=== PATIENT | female | born 1970 | race African-American/Black ===

== ENCOUNTER 2024-11-02 08:52 | Emergency (ER) | payer MEDICAID ==
[~2024-11-02] VITALS: Ht 170.2 cm; Wt 109.0 kg
[2024-11-02 08:55] VITALS: TEMP 36.9; O2SAT 100
[2024-11-02] MEDS ORDERED: DEXAMETHASONE 1 MG/ML ORAL SYR PO ONE (09:15)
[2024-11-02] MEDS: DEXAMETHASONE 10 MG/ML VIAL PO NR (09:30)
[2024-11-02] MEDS: KETOROLAC 30MG/ML VIAL IM ONE (09:30)
[2024-11-02] MEDS: CEFTRIAXONE SODIUM 500MG VIAL IV ONE (10:00)
[2024-11-02 10:01] LABS: HEMATOCRIT. 35.6 % (36.0-48.0); HEMOGLOBIN. 11.6 g/dL (12.0-16.0); MEAN PLATELET VOLUME 8.3 fl (7.4-10.4); PLATELET 336 x1000/uL (130-400); RED BLOOD CELL COUNT 4.36 mill/uL (4.2-5.4); RED CELL DISTRIBUTION WIDTH 15.6 % (11.6-14.6)
[2024-11-02] MEDS: DOXYCYCLINE HYCLATE 100MG CAPSULE PO ONE (10:12)
[2024-11-02] MEDS: LIDOCAINE 5% PATCH TOP SCH (10:12)
[2024-11-02 10:15] LABS: CREATININE 0.6 mg/dL (0.6-1.0); UREA NITROGEN BLOOD 6 mg/dL (9-23)
[2024-11-02 10:23] LABS: BAND% 16.0 % (1.0-6.0); EOSINOPHILS % MANUAL 2.0 % (0.0-5.0); LYMPHOCYTES % MANUAL 23.0 % (20.0-60.0); MONOCYTES % MANUAL 13.0 % (2.0-8.0); NEUTROPHILS % MANUAL 46.0 % (45.0-75.0); PLATELET ESTIMATE NORMAL
[2024-11-02 10:58] LABS: CLARITY URINE TURBID (CLEAR); COLOR URINE YELLOW (YELLOW); GLUCOSE URINE NEGATIVE (NEGATIVE); KETONES URINE TRACE (NEGATIVE); LEUKOCYTE ESTERASE URINE 3+ (NEGATIVE); NITRITE URINE NEGATIVE (NEGATIVE); OCCULT BLOOD URINE 1+ (NEGATIVE); PH URINE 8.5 (4.5-8.0); PROTEIN URINE 2+ (NEGATIVE); SPECIFIC GRAVITY URINE 1.014 (1.005-1.030); UROBILINOGEN URINE 2.0 E.U./dL (0.2-1.0)
[2024-11-02] MEDS ORDERED: DOXY-461 MT (11:12)
[2024-11-02] MEDS ORDERED: CEPH500C2 MT (11:12)
[2024-11-02 11:35] LABS: WBC URINE TNTC /hpf (0-2)
[2024-11-02] MEDS: CEPHALEXIN 250MG CAPSULE PO ONE (11:35)
[2024-11-02 11:36] LABS: SQUAMOUS EPITHELIAL CELL URINE 1+ /lpf (RARE/1+)
[2024-11-02 11:37] LABS: BACTERIA URINE 2+
[2024-11-02 11:45] VITALS: BP 142/78; PULSE 87; RESP 16; O2SAT 100
[2024-11-03 05:13] LABS: HSV TYPE 2 SPECIFIC AB IGG Reactive (Non Reactive)
[2024-11-05 05:09] LABS: CHLAMYDIA TRACHOMATIS NAA Negative (Negative); NEISSERIA GONORRHOEAE NAA Negative (Negative)
== END 2024-11-02 12:19 | disposition home or self-care (01) ==
LOC: EDSEX 08:52 → ER 09:18
DX: N12 Tubulo-interstitial nephritis, not specified as acute or chronic (principal); N39.0 Urinary tract infection, site not specified; F31.9 Bipolar disorder, unspecified; I10 Essential (primary) hypertension; Z88.5 Allergy status to narcotic agent
CPT/HCPCS: 86695; 86696; 87491; 87591; 80048; 81003; 85025; 86592; 87086; 87186; 36415; 96372; 99284; J0696; J1100; J1885; Z7610; J8540